=== PATIENT | female | born 1955 | race Caucasian/White ===

== ENCOUNTER 2019-03-18 10:50 | Observation (INO) | payer OTHER ==
--- NOTE | 2019-03-09 19:20 | HP ---
HISTORY AND PHYSICAL: DATE OF ADMISSION: 03/18/19 PROVIDER: Kaycee Garcia MD * (DICTATED BY RACHEL CROFT) HISTORY OF PRESENT ILLNESS: Ms. Copeland is a 63-year-old female who reports severe pain in the right knee. That has been ongoing for years. She states the pain is 6/10 and causes swelling in the right knee. She has failed conservative management with sterile injection, antiinflammatories and physical therapy. She is having difficulty with twisting and stairs. She has difficulty with prolonged ambulation. She would like to undergo a right total knee arthroplasty. PAST MEDICAL HISTORY: 1. Ulcerative colitis and IBS and heartburn. 2. Lumbar spine pain. PAST SURGICAL HISTORY: 1. L4-L5 surgery, unspecified. 2. Gallbladder removal. 3. Tubal ligation. MEDICATIONS: 1. Flaxseed oil. 2. Oxycodone 5 mg. 3. Omeprazole 40 mg. 4. VSL#3 twice a day. 5. Mesalamine 4 mg. 6. Clonazepam 0.5 mg. 7. Duloxetine 30 mg. 8. Phentermine 37.5 mg. 9. Gabapentin 300 mg daily. ALLERGIES: No known drug allergies. SOCIAL HISTORY: Lives with her . She is retired. Does not drink, smoke , or have any illicit drug use. FAMILY HISTORY: Noncontributory. REVIEW OF SYSTEMS: General: She denies any fevers, chills or night sweats. No known anesthesia problems. HEENT: The patient denies any headaches, lightheadedness or syncopal episodes. Cardiothoracic: The patient denies any chest pain or heart palpitations. Pulmonary: The patient denies any shortness of breath with exertion, chronic cough. GI: The patient denies any nausea, vomiting, diarrhea or constipation. : The patient denies any nocturia, urinary frequency or urgency. MSK: The patient admits to low back pain. Neuro : The patient denies any paresthesias, numbness, or seizures. Integument: The patient denies any abrasions, lesions, rashes, lumps, open sores. PHYSICAL EXAMINATION GENERAL: The patient is a alert and oriented x3, appropriate mood and affect, appropriately dressed and hygiene. HEENT: Normocephalic, atraumatic. Hearing and vision are grossly intact. PULMONARY: Lungs are clear to auscultation bilaterally with no wheezes, rales or rhonchi. CARDIO: Regular rate and rhythm. Normal S1 and S2. No appreciable S3 or S4. No murmurs, rubs, or gallops. MSK: Right lower extremity: Infection of the right knee reveals no erythema or ecchymosis. Skin is warm, dry, and intact. Range of motion of the right knee reveals 10 degrees shy of full extension to 125 degrees of flexion with patellofemoral crepitus and pain. She has no pain or laxity with varus/valgus stress testing or anterior and posterior drawer testing. She has positive Apley 's and negative Swapna's. She is neurovascularly intact distally with 2+ dorsalis pedis pulse. IMPRESSION: Right knee osteoarthritis, severe. PLAN: To the OR for a right total knee arthroplasty to be performed by Dr. Kaycee Garcia on 03/18/19. The risks and complications were reviewed with the patient and signed understanding was obtained. She will follow up in 10 to 14 days postop for suture removal. RACHEL CROFT [id number]/[facility] #: [id number] DEWAYNE
[~2019-03-18 10:50] MED LIST: Buffered Lidocaine 1% SYRIN* 1 ML/SYRINGE INTRADERM ONE; Lactated Ringers 1000 ML Bag* 1,000 ML IV SCH; Tranexamic Acid 1,000 MG in NS 0.9% 50 ML IV ONE; ceFAZolin 2 GM in NS PREMIX(*) 2 GM/100 ML BAG IVPB ONE
[2019-03-18] MEDS ORDERED: Lidocaine 2% PF * 5 ML VIAL ONE (11:25)
[2019-03-18] MEDS ORDERED: Propofol* 10 MG/ML 20 ML BTL ONE ×2 (11:25→13:42)
[2019-03-18] MEDS ORDERED: Midazolam* 1 MG/ML 2 ML VIAL (2 MG) ONE (11:27)
[2019-03-18] MEDS ORDERED: ROPIVACAINE 5 MG/ML 30 ML BTL (0.5%) ONE ×2 (11:28→13:34)
[2019-03-18] MEDS ORDERED: Buffered Lidocaine 1% SYRIN* 1 ML/SYRINGE INTRADERM ONE (12:05)
[2019-03-18] MEDS ORDERED: fentaNYL* 50 MCG/ML 2 ML VIAL (100 MCG VIAL) ONE ×2 (13:40→14:23)
[2019-03-18] MEDS ORDERED: Metoclopramide IV* 5 MG/ML 2 ML VIAL ONE (13:58)
[2019-03-18] MEDS ORDERED: Ketorolac INJ* 30 MG/ML 1 ML VIAL ONE (13:58)
[2019-03-18] MEDS ORDERED: Ondansetron INJ* 2 MG/ML VIAL ONE (13:58)
[2019-03-18] MEDS ORDERED: Dexamethasone IV* 4 MG/ML 1 ML (4 MG) ONE (13:58)
[2019-03-18] MEDS ORDERED: Labetalol IV* 5 MG/ML 20 ML VIAL ONE ×2 (14:28→14:30)
[2019-03-18] MEDS ORDERED: Acetaminophen IV 1GM/100ML * 100 ML ONE (14:50)
[2019-03-18] MEDS ORDERED: oxyCODONE TAB* 5 MG TAB PO PRN (14:56)
[2019-03-18] MEDS ORDERED: HYDROmorphone INJ1* 1 MG/ML SYRINGE IV PRN (14:56)
[2019-03-18] MEDS ORDERED: Naloxone* 0.4 MG/ML 1 ML VIAL IV PRN (14:56)
[2019-03-18] MEDS ORDERED: DiMENhydriNATE IV* 50 MG/ML VIAL IV PUSH PRN (14:56)
[2019-03-18] MEDS ORDERED: HYDROmorphone INJ1* 1 MG/ML SYRINGE ONE ×2 (15:33→16:11)
[2019-03-18] MEDS ORDERED: Acetaminophen TAB* 325 MG PO PRN (15:44)
[2019-03-18] MEDS ORDERED: Ondansetron INJ* 2 MG/ML VIAL IV PRN (15:44)
[2019-03-18] MEDS ORDERED: oxyCODONE/Acetamin 5/325 MG* TAB PO PRN (15:44)
[2019-03-18] MEDS ORDERED: diPHENhydraMINE IV* 50 MG/ML 1 ml VIAL (BENADRYL) IV PRN (15:44)
[2019-03-18] MEDS ORDERED: Ondansetron ODT TAB* 4 MG PO PRN (15:44)
[2019-03-18] MEDS ORDERED: Morphine INJ* 2 MG/ML 1 ML SYRINGE (TWO MG - NEW SYRINGE VERSION) IV PRN (15:44)
[2019-03-18] MEDS ORDERED: Magnesium Hydroxide LIQ* 30 ML UDC PO PRN (15:44)
[2019-03-18] MEDS ORDERED: diPHENhydraMINE PO* 25 MG PO PRN (15:44)
[2019-03-18] MEDS ORDERED: Cyclobenzaprine TAB* 10 MG PO PRN (15:44)
[2019-03-18] MEDS: Lactated Ringers 1000 ML Bag* 1,000 ML IV SCH (16:57)
--- NOTE | 2019-03-18 17:06 | OP ---
Operative Report - Blank - Operative Report Date of Operation: 03/18/19 Note: KAMRAN KAHN 1955 Date of Surgery: 03/18/19 Kaycee Garcia MD Medical Auditor: Carmina RAMOS did help throughout the procedure with preparation of the knee, wound retraction, manipulation of the knee, and wound closure. Anesthesiologist: Steven Guy MD Anesthesia Type: General Preoperative Diagnosis: Right severe degenerative osteoarthritis of the knee Postoperative Diagnosis: As above Procedure Performed: Right Total Knee Arthroplasty Tourniquet time: 38 minutes Complications: None Specimen: Bone and cartilage from the right knee joint sent to pathology. Hardware Used: Cemented Arias [employer] Nephew total knee hardware was used - For the femur a size 5 right narrow oxinium legion posterior stabilized femoral component, for the tibia a size 3 right meaghan II tibial baseplate, for the insert a size 9mm 3-4 posterior stabilized articular polyethylene insert, and for the patella a size 32 3-peg all poly patella. Brief History/Indication: KAMRAN KAHN was known in clinic and had a history of severe right knee pain and swelling. She failed conservative treatment with anti -inflammatories, pain pills, intra-articular injections and physical therapy. She elected to undergo right total knee arthroplasty due to continued pain and decreased quality of life. Radiographs showed severe end stage osteoarthritis of the knee with bone on bone contact. Informed consent was obtained from the patient. She understood the risks of surgery included but were not limited to: bleeding, infection, damage to nearby structures, intraoperative fracture, nerve palsy, failure of the hardware, early loosening, knee stiffness or loss of motion, anesthesia complications, stroke, heart attack, blood clot and . She wished to proceed. Intra-Operative Findings: Intraoperatively the patient was noted to have severe loss of cartilage in all 3 compartments of the knee. Description of the Procedure: KAMRAN KAHN was identified in the preanesthesia unit. Her right knee was marked as the correct operative side. Informed consent was signed and placed in the chart. The patient was taken to the operating room and placed under anesthesia without complication. A leong catheter was placed. A tourniquet was placed on the right thigh. The right lower extremity was prepped and draped in the usual sterile fashion. Preoperative time-out was made to correctly identify the patient, side and site. Appropriate intraoperative antibiotics were given within one hour of incision. Tourniquet was inflated. A midline incision was made and carried sharply down to the extensor mechanism. A new 10 blade was used to make a standard medial parapatellar arthrotomy. The patella was subluxed laterally. Electrocautery was used to dissect soft tissue off the superomedial tibia to the midsagittal plane. The knee was flexed up. The anterior horn of the lateral meniscus and the ACL were sharply incised. A drill was used to enter the distal femur. The intramedullary distal femoral cutting guide was pinned on the distal femur. The oscillating saw was used to make the distal femoral cut. The external rotation guide was pinned on the distal femur and the distal femur was sized to a size 5. The size 5 multi-cutting jig was pinned on the distal femur. The oscillating saw was used to make the appropriate 4 chamfer cuts. Next the PCL was completely released. The extramedullary tibial cutting guide was pinned on the proximal tibia and the oscillating saw was used to make the proximal tibial cut perpendicular to the mechanical axis of the tibia. The bone was carefully removed. The knee was brought out into full extension. The spacer block was placed and had excellent fit with the knee in full extension. The medial and lateral ligaments were well balanced. The flexion and extension gaps were well balanced. The knee was flexed up. Lamina barber tool sharpener was placed both medially and laterally. Any remaining meniscus was removed with electrocautery. Curved osteotome was used to remove any posterior osteophytes. The tibial tray and drop werner were placed and confirmed a satisfactory tibial cut. The size 5 right femoral trial was impacted onto the distal femur. This trial had excellent fit and stability. The box for the posterior stabilized implant was prepared using a box cut osteotome and a reamer. Next a tibial tray trial and 9 mm insert trial was placed. The knee was taken through a range of motion and had full extension to 130 degrees of flexion. Patellofemoral tracking was satisfactory. The patella was inverted and sized to a size 32. Three peg holes were drilled through the size 32 drill guide. The trial patella was placed and the knee was taken through a range of motion. There was satisfactory patellofemoral tracking. All trials were removed. The tibia was subluxed anteriorly and sized to a size 3. The proximal tibial was prepared with a size 3 keel punch. All bony cut surfaces were irrigated with sterile saline and dried. Final implants were cemented into place starting with the tibia, followed by the femur, and last the patella. A 9 mm insert trial was placed and the knee was brought into full extension. Tourniquet was turned down and the knee was copiously irrigated with sterile saline. Electrocautery was used to obtain meticulous hemostasis. Once the cement had fully cured, the insert trial was removed. Any excess cement was removed from around the hardware and capsule. Final insert chosen was a 9 mm posterior stabilized Meaghan II articular insert size 3-4. Stability of the insert was checked and noted to be stable. The extensor mechanism was closed using number 1 vicryls. The rest of the incision was closed in a layered fashion using 0 and 2-0 vicryls. The skin was closed using 3-0 nylon suture. Sterile xeroform, 4x4s and webril were used to cover the incision. Chapin wrap and cold pack were used to cover the dressings. The patients anesthesia was reversed without difficulty. She was taken to the PACU in stable condition. Intended weight-bearing will be as tolerated.
[2019-03-18] MEDS: oxyCODONE/Acetamin 5/325 MG* TAB PO PRN (17:31)
[2019-03-18] MEDS: Gabapentin CAP(*) 300 MG PO SCH (20:35)
[2019-03-18] MEDS: oxyCODONE TAB* 5 MG TAB PO PRN (20:36)
[2019-03-18] MEDS: Magnesium Hydroxide LIQ* 30 ML UDC PO SCH (21:26)
[2019-03-18] MEDS: Docusate CAP* 100 MG PO SCH (21:26)
[2019-03-18] MEDS: ceFAZolin 1 GM ADVAN(*) 1 GM in NS 0.9% 50 ML* 50 ML IVPB SCH (22:30)
[2019-03-19] MEDS: oxyCODONE/Acetamin 5/325 MG* TAB PO PRN ×3 (00:08→11:18)
[2019-03-19] MEDS: oxyCODONE TAB* 5 MG TAB PO PRN ×3 (03:09→14:18)
[2019-03-19] MEDS: Lactated Ringers 1000 ML Bag* 1,000 ML IV SCH (03:10)
[2019-03-19 05:56] LABS: Hematocrit 31 % (35-47); Hemoglobin 10.5 g/dL (12.0-16.0); Mean Platelet Volume 6.3 fL (7.4-10.4); Platelet Count 301 10^3/uL (150-450)
[2019-03-19 06:12] LABS: BUN/Creatinine Ratio 16.1 (8-20); Calcium 8.9 mg/dL (8.6-10.3); EGFR African American 118.4 (>60); EGFR Non-African American 97.9 (>60); Potassium 4.5 mmol/L (3.5-5.0)
[2019-03-19] MEDS: ceFAZolin 1 GM ADVAN(*) 1 GM in NS 0.9% 50 ML* 50 ML IVPB SCH ×2 (06:17→14:18)
[2019-03-19] MEDS: Gabapentin CAP(*) 300 MG PO SCH (08:17)
[2019-03-19] MEDS: Docusate CAP* 100 MG PO SCH (08:18)
[2019-03-19] MEDS: Magnesium Hydroxide LIQ* 30 ML UDC PO SCH (08:18)
[2019-03-19] MEDS ORDERED: Vitamin THERAPEUTIC TAB PO SCH (09:00)
[2019-03-19] MEDS ORDERED: Apixaban* 2.5 MG TAB PO SCH (09:00)
[2019-03-19] MEDS ORDERED: Thyroid TAB* 30 MG PO SCH (09:00)
[2019-03-19] MEDS ORDERED: Pantoprazole TAB * 40 MG TAB PO SCH (09:00)
[2019-03-19] MEDS ORDERED: [UNRECOGNIZED DRUG - OTHER] PR SCH (09:00)
--- NOTE | 2019-03-19 11:31 | PN ---
Progress Note - Progress Note Date of Service: 03/19/19 SOAP: Subjective: [Pt was seen this morning sitting in chair. She states that she is doing well. Pain is well controlled today. She is doing well with PT at this point. She denies any nausea, vomiting, chest pain or SOB. ] Objective: [General: pt is alert and oriented x3. NAD MSK, RLE: Dressing is c/d/i. + df/pf. Calfs soft and non tender. NVI distally. 2 + DP pulse. ] Vital Signs Temp 98.7 F 03/19/19 08:14 Pulse 70 03/19/19 08:14 Resp 16 03/19/19 11:18 BP 128/77 03/19/19 08:14 Pulse Ox 97 03/19/19 08:14 Intake & Output 03/18/19 03/19/19 03/19/19 18:59 06:59 18:59 Intake Total 1400 600 Output Total 700 1100 250 Balance 700 -500 -250 Weight 186 lb Intake: IV Fluids 1400 LR 1300 NS 100ML, Cefazolin 2G 100 Oral 600 Output: Urine 250 Pereyra 500 1100 Estimated Blood Loss 200 Assessment: [POD 1 RTKA ] Plan: [Percocet for pain PT/OT Eliquis x 30 days Possible DC later today should PT go well ]
--- NOTE | 2019-03-19 11:35 | DS ---
Orthopedic Discharge Summary - Discharge Summary Date of Admission:03/18/19 Date of Discharge: 03/19/2019 Date of Surgery: 03/18/2019 Attending Orthopedic Provider: Dr. Garcia Pre-operative Diagnosis: Right knee osteoarthritis Operative Procedure: Right total knee replacement Disposition of Patient: Home Condition of Patient: Good History: KAMRAN KAHN is a 63 year old F with years of increasingly severe Right knee pain. Patient has failed conservative management and has elected to undergo a right total knee replacement Hospital Course: KAMRAN was admitted to [facility] on 03/18/19. Patient underwent a right total knee replacement without complication followed by a brief recovery in PACU and transfer to the Short Stay Surgical Unit in stable condition. Physical therapy and occupational therapy also participated in this patients care. Post-op day 1: patient was alert and in no acute distress. Dressing was clean, dry and intact. Operative extremity dorsiflexion and plantarflexion intact, sensation intact to light touch distally, DP2+. Dressing was changed, incision was clean, dry and intact. Patient was deemed to be medically and orthopedically stable for discharge. Physical therapy goals were met. Home Medications Medication Instructions Recorded Confirmed Type Adalimumab (NF) Humira Pen (NF) 40 mg SC .EVERY OTHER WEEK 10/12/18 03/18/[address] CAP* [Cymbalta CAP*] 60 mg PO QAM 10/12/18 03/18/19 History Flaxseed Oil 1,000 mg PO QAM 10/12/18 03/18/19 History L.acidoph,Paracasei, B.lactis 1 each PO BID 10/12/18 03/18/19 History [Probiotic] Mesalamine [Mesalamine Dr] 4 tab PO QAM 10/12/18 03/18/19 History Mesalamine [Rowasa] 4 gm RC BEDTIME 10/12/18 03/18/19 History Multivitamin [Multiple Vitamins] 1 tab PO QAM 10/12/18 03/18/19 History Omeprazole 40 mg PO QAM 10/12/18 03/18/19 History Thyroid,Pork [[place] Thyroid] 30 mg PO QAM 10/12/18 03/18/19 History clonazePAM TAB(*) [KlonoPIN TAB(*)] 1 - 2 tab PO BEDTIME PRN 10/12/18 03/18/19 History oxyCODONE TAB* [Roxycodone TAB 5 10 mg PO Q6HR PRN 10/12/18 03/18/19 History mg*] Gabapentin CAP(*) [Neurontin 300 300 mg PO BID 10/22/18 03/18/19 History CAP(*)] Uceris Foam 1 applic [place] QAM 10/22/18 03/18/19 History Phentermine HCl [Adipex-P] 37.5 mg PO QAM 12/01/18 03/18/19 History Discharge Instructions following Orthopedic Surgery: Activity: * Weight Bearing as tolerated * Continue physical therapy and occupational therapy exercises as shown Wound care: * OK to shower on post-op day 3, no bathing, swimming, or submerging wound. * Use gentle soap, pat dry. Cover with gauze, KARINA wrap or tape. * Visiting home nurse to do wound checks. Call Orthopedic office for: * Increased drainage * Redness * Increased pain * Fever Go to ER with shortness of breath or chest pain. Diet: * Regular diet * Increase fluids and fiber to prevent constipation. * Continue to use stool softeners, call office if no bowel motion within 48 hours. Medications See Home Medication List in your packet for medications that you should take after discharge. DVT Prophylaxis: Eliquis Dosin.5 mg, 1 tab every 12 hours x 30 days Pain Control: Percocet Dosin/325 mg 1-2 tabs by mouth every 4-6 hours as needed for pain. Maximum of 10 tabs per day. Please note that Percocet contains Tylenol (acetaminophen). Maximum daily dose of Tylenol is 4000 mg from all sources. Antibiotics are required prior to any dental work. FOLLOW UP: Follow up with [BRANDI] Within 10-14 days, call for appointment Please call our office with any questions or concerns ([phone])
[2019-03-19 12:14] VITALS: BP 126/71
== END 2019-03-19 16:18 | disposition home or self-care (01) ==
LOC: OR 10:50 → SSU 15:44
PROVIDERS: ADMIT Orthopaedic Surgery Adult Reconstructive Orthopaedic Surgery; ATTEND Orthopaedic Surgery Adult Reconstructive Orthopaedic Surgery
DX: M17.11 Unilateral primary osteoarthritis, right knee (principal); K51.90 Ulcerative colitis, unspecified, without complications; K21.9 Gastro-esophageal reflux disease without esophagitis; R12 Heartburn; M54.5 Low back pain; Z79.899 Other long term (current) drug therapy
CPT/HCPCS: 36415; 80048; 85014; 85018; 85049; 86850; 86900; 86901; 96361; 96365; 96366; 96375; A9270-GY; G0378; J0690; J1100; J1170; J1885; J2250; J2270; J2405; J2704; J2765; J2795; J3010

== ENCOUNTER 2021-09-14 10:48 | Observation (INO) ==
[~2021-09-14 10:48] MED LIST changes: +Buffered Lidocaine 1% SYRIN 1 ml INTRADERM ONE; -Buffered Lidocaine 1% SYRIN* 1 ML/SYRINGE INTRADERM ONE; -Lactated Ringers 1000 ML Bag* 1,000 ML IV SCH; +Lactated Ringers 1000 ml BAG 1,000 ML IV SCH; +Lidocaine 2% PF 10 ML AMP ONE; +Propofol 10 mg/ml 100 ML BTL 100 ML ONE; -Tranexamic Acid 1,000 MG in NS 0.9% 50 ML IV ONE; -ceFAZolin 2 GM in NS PREMIX(*) 2 GM/100 ML BAG IVPB ONE
[2021-09-14] MEDS ORDERED: fentaNYL 100 mcg/2 ml 50 MCG/ML VIAL ONE ×3 (10:55→15:34)
[2021-09-14] MEDS ORDERED: Midazolam 2 mg/2 ml VIAL 1 mg/ml 2 ml VIAL (2 mg) ONE (10:55)
[2021-09-14] MEDS ORDERED: Dexamethasone IV 4 MG/ML VIAL 1 ml VIAL ONE (10:55)
[2021-09-14] MEDS ORDERED: Ondansetron 4 mg VIAL 2 MG/ML 2 ml VIAL ONE (10:55)
[2021-09-14] MEDS ORDERED: Buffered Lidocaine 1% SYRIN 1 ml INTRADERM ONE (11:16)
[2021-09-14] MEDS ORDERED: ceFAZolin 2 GM in NS PREMIX 2 GM/100 ML BAG IVPB ONE (11:16)
[2021-09-14] MEDS ORDERED: ROPIVACAINE 5 MG/ML 30 ML BTL (0.5%) ONE (11:56)
[2021-09-14] MEDS ORDERED: Rocuronium 50 mg VIAL 10 mg/ml 5 ml VIAL (50 mg) ONE (12:01)
[2021-09-14] MEDS ORDERED: HYDROmorphone 0.5 MG/0.5 ML SYRINGE ONE (12:01)
[2021-09-14] MEDS ORDERED: Naloxone 0.4 mg VIAL 0.4 mg/ml 1 ml VIAL IV PRN (12:06)
[2021-09-14] MEDS ORDERED: Ondansetron 4 mg VIAL 2 MG/ML 2 ml VIAL IV PRN ×2 (12:06→14:12)
[2021-09-14] MEDS ORDERED: Morphine 2 MG/ML SYRINGE IV PRN (14:12)
[2021-09-14] MEDS ORDERED: Magnesium Hydroxide LIQ 30 ML UDC PO PRN (14:12)
[2021-09-14] MEDS ORDERED: Ondansetron ODT 4 mg TAB 4 MG TAB PO PRN (14:12)
[2021-09-14] MEDS ORDERED: Lactulose 30 ml UDC PO PRN (14:12)
[2021-09-14] MEDS ORDERED: Acetaminophen IV 1 GM/100ML 100 ML IV ONE (14:17)
[2021-09-14] MEDS ORDERED: ceFAZolin 1 GM ADVAN 1 GM in NS 0.9% 50 ML 50 ML IVPB SCH (15:00)
[2021-09-14] MEDS ORDERED: hydrALAZINE 20 mg/ml 1 ML Vial IV ONE (15:02)
[2021-09-14] MEDS: fentaNYL 100 mcg/2 ml 50 MCG/ML VIAL IV PRN ×2 (15:39→16:02)
[2021-09-14] MEDS ORDERED: HYDROmorphone 1 MG/1 ML SYRINGE ONE (16:15)
[2021-09-14] MEDS: HYDROmorphone 1 MG/1 ML SYRINGE IV PRN ×2 (16:16→16:37)
[2021-09-14] MEDS: Lactated Ringers 1000 ml BAG 1,000 ML IV SCH (17:39)
[2021-09-14] MEDS: Magnesium Hydroxide LIQ 30 ML UDC PO SCH (20:56)
[2021-09-14] MEDS: ceFAZolin 1 GM ADVAN 1 GM in NS 0.9% 50 ML 50 ML IVPB SCH (21:42)
[2021-09-15] MEDS: Lactated Ringers 1000 ml BAG 1,000 ML IV SCH (03:31)
[2021-09-15] MEDS: ceFAZolin 1 GM ADVAN 1 GM in NS 0.9% 50 ML 50 ML IVPB SCH ×2 (04:28→12:15)
[2021-09-15 06:22] LABS: Hematocrit 28 % (35-47); Hemoglobin 9.3 g/dL (12.0-16.0); Mean Platelet Volume 7.1 fL (7.4-10.4); Platelet Count 248 10^3/uL (150-450)
[2021-09-15 06:36] LABS: Potassium 4.7 mmol/L (3.5-5.0); eGFR CKD-EPI 97.5 (>60)
[2021-09-15] MEDS ORDERED: DULoxetine DR 60 mg CAP PO SCH (09:00)
[2021-09-15] MEDS ORDERED: Vitamin THERAPEUTIC TAB PO SCH (09:00)
[2021-09-15] MEDS ORDERED: PHENTERMINE 37.5 MG PO SCH (09:00)
[2021-09-15] MEDS: Magnesium Hydroxide LIQ 30 ML UDC PO SCH (09:39)
[2021-09-15 11:05] VITALS: BP 114/63
== END 2021-09-15 13:19 | disposition home or self-care (01) ==
LOC: OR 10:48 → EDSTATUS 14:45 → SSU 17:25 → INTOOBSV 17:25
PROVIDERS: ADMIT Orthopaedic Surgery Adult Reconstructive Orthopaedic Surgery; ATTEND Orthopaedic Surgery Adult Reconstructive Orthopaedic Surgery